=== PATIENT | female | born 1990 | race African-American/Black ===

== ENCOUNTER 2016-12-04 09:25 | Observation (INO) ==
[2016-12-04] MEDS ORDERED: SODIUM CHLORIDE 0.9% 1,000 ML IV STA (09:52)
[2016-12-04 10:03] LABS: Basophils % 0.1 % (0.0-0.8); Eosinophils % 0.3 % (0.00-10.9); Hematocrit 22.2 VOL% (35.7-47.0); Hemoglobin 7.3 GM/DL (12.0-16.0); Immature Granulocytes % 0.6 %; Immature Granulocytes Absolute 0.07 #; Lymphocytes # 1.3 10*3/uL (1.4-4.0); Lymphocytes % 11.7 % (21.3-54.2); Mean Corpuscular HGB Conc 32.9 GM/DL (32-36); Mean Corpuscular Hemoglobin 30 PG (27-34); Mean Corpuscular Volume 90.2 FL (87-102); Mean Platelet Volume 9.9 FL (9.6-12.0); Monocytes # 0.7 10*3/uL (0.11-0.8); Monocytes % 6.4 % (1.7-12.7); Neutrophils % 80.9 % (38.7-73.9); Platelet Count 186 T/CUMM (130-400); Red Blood Count 2.46 MC/CUMM (3.8-5.5); Red Cell Distribution Width 13.8 % (9.3-17.3); White Blood Count 11.1 T/CUMM (4-12)
[2016-12-04] MEDS ORDERED: ONDANSETRON 4 MG/2 ML VIAL IV STA (10:07)
[2016-12-04] MEDS ORDERED: HYDROmorphone 2 MG/1 ML VIAL IV STA (10:07)
[2016-12-04] MEDS ORDERED: ONDANSETRON 4 MG/2 ML VIAL ONE (10:09)
[2016-12-04] MEDS ORDERED: HYDROmorphone 2 MG/1 ML VIAL ONE (10:09)
[2016-12-04 10:12] LABS: INR 1.1; PT Patient Result 11.5 SECS; Partial Thromboplastin Time 29.9 SECS (0-40)
--- NOTE | 2016-12-04 10:15 | Emergency Department Note ---
Pratik Ledezma Hilary, am scribing for, and in the presence of, Elmer Clancy MD 10: 12. Julieth Ledezma James D, MD, personally performed the services described in this documentation, ascribed by Maggie Christie in my presence, and it is both accurate and complete . Arrival - Arrival Chief Complaint: Urogenital - Female Stated Complaint: Urogenital ED Nursing Triage Note: Pt had a D&C performed friday at OSH. Pt has had bleeding and abd pain since. The pain became much worse at 5 am. Mode of Arrival: Stretcher Limitations: No Limitations Source: Patient, RN Notes Reviewed Time Seen by Provider: 12/04/16 09:47 - History of Present Illness HPI Narrative: Pt is a 26 y/o black female brought into the ED via EMS for c/o vaginal bleeding which onset yesterday. Pt had a vaginal delivery 4 days ago [facility] and they performed a D&C to get the rest of the Placenta out. Pt states the pain subsided but then came back yesterday in clots but no pain, and around 0500 this morning the pain so was so severe that she called EMS. Onset (ago): day(s) Allergies/Adverse Reactions: Allergies Allergy/AdvReac Type Severity Reaction Status Date / Time No Known Allergies Allergy Verified 12/04/16 09:31 Home Medications: Home Medications Medication Instructions Recorded Confirmed Type No Known Home Medications [No 12/04/16 12/04/16 History Known Home Medications] Review of System - Review of System 12 point system: reviewed and no additional remarkable complaints except as stated - Review of System Constitutional: Absent: fever Gastrointestinal: Present: abdominal pain Genitourinary female: Present: other (Vaginal bleeding) Medical,Surgical,& Family Hx - Medical History Reproductive: History of: Ectopic - Social History Smoking Status: Never smoker Frequency of Alcohol Use: None Type of Drug Use: None Exam Physical Examination: GENERAL: This is a well-nourished, well-developed female in no apparent distress. VITAL SIGNS: Temperature:98.7 Pulse: 120 Respiratory: 16 Blood Pressure: 119/68 O2Sat: 100 HEENT: Head is normocephalic and atraumatic. Pupils are equally round and reactive to light. Extraocular movement are intact. Oropharynx is benign with moist mucous membranes. NECK: Neck is soft and supple without tenderness. There are no masses. There is no lymphadenopathy. LUNGS: Lungs are clear to auscultation bilaterally. Chest rises symmetrically. There is no chest wall tenderness. CV: Heart is Tachycardic rate and rhythm without murmurs, rubs, or gallops. ABDOMEN: Abdomen is soft, tenderness to palpation above the uterus. There are no abnormal masses palpated. There is no organomegaly. Bowel sounds are present and active. Uterus is 18 weeks in size SKIN: Skin is warm and dry. No rash. EXTREMITIES: Patient has full range of motion without tenderness. There is no pedal edema. NEUROLOGIC: Awake, alert, and oriented x4. Cranial nerves II through XII are grossly intact. There are no motorsensory deficits. PSYCHIATRIC: Normal affect. Normal mood. Vital Signs: Vital Signs Temperature 98.2 F 12/05/16 07:43 Pulse Rate 72 12/05/16 07:43 Respiratory Rate 20 12/05/16 07:43 Blood Pressure 91/63 12/05/16 07:43 O2 Sat by Pulse Oximetry 99 12/05/16 07:43 Course - Consultations Consultation #1: Discussed with Dr. Rubin. Patient will be admitted to his service. Initial orders written for him. He will assume care upon patient's arrival to the ganrer. Results - Labs CBC & BMP: 12/05/16 05:53 Lab Results: I have reviewed the patients labs Labs: Laboratory Tests 12/04/16 09:55 WBC 11.1 RBC 2.46 L Hgb 7.3 L Hct 22.2 L Neut % (Auto) 80.9 H Lymph % (Auto) 11.7 L Neut # (Auto) 9.0 H Lymph # (Auto) 1.3 L Laboratory Tests 12/04/16 09:55 Urine Color Yellow Urine Appearance Slightly hazy Urine Urobilinogen < 2.0 H Disposition Clinical Impression: hemorrhage of vagina Case discussed with: patient Disposition: Still a Patient Condition: Stable
[2016-12-04 10:30] LABS: Apearance,Urine Slightly Hazy (Clear); Bilirubin,Urine Negative (Negative); Blood, Urine Moderate mg/dL (Negative); Glucose,Urine (UA) Negative (Negative); Ketones,Urine 5 mg/dL (Negative); Mucus,Urine Few /LPF (Occasional); Nitrite,Urine Negative (Negative); Protein,Urine Negative; RBC,Urine 1 /HPF (0-4); Squamous Epithelial Cell,Urine Occasional /HPF (0-10); Urine Color Yellow (Yellow); Urine Specific Gravity 1.012 (1.001-1.035); Urine Urobilinogen < 2.0 EU/DL (0.2-1.0); WBC,Urine 1 /HPF (0-6)
[2016-12-04] MEDS ORDERED: OXYTOCIN/LR 20 UNIT/1,000 ML BAG IV ONE (10:36)
[2016-12-04] MEDS ORDERED: OXYTOCIN 10 UNIT/ML VIAL ONE (10:46)
[2016-12-04] MEDS ORDERED: ACETAMINOPHEN 325 MG TABLET PO PRN (11:05)
[2016-12-04] MEDS ORDERED: IBUPROFEN 800 MG TABLET PO PRN (11:05)
[2016-12-04] MEDS ORDERED: ONDANSETRON 4 MG/2 ML VIAL IV PRN (11:05)
[2016-12-04] MEDS ORDERED: SODIUM CHLORIDE 0.9% 250 ML IV PRN (11:05)
[2016-12-04] MEDS ORDERED: BISACODYL 10 MG SUPP RECTAL PRN (11:05)
[2016-12-04] MEDS ORDERED: MEPERIDINE 50 MG/1 ML VIAL IV PRN (11:44)
--- NOTE | 2016-12-04 13:34 | Ultrasound Report ---
US pelvic complete Indication: Vaginal bleeding 4 days . Comparison: None. Technique: Using transabdominal probe, grayscale and color Doppler images of the pelvis were captured and stored. Findings: Uterus measures 13.4 x 7.0 x 6.4 cm. The endometrium is thickened measuring 1.9 cm. Anatomic detail of the endometrial cavity is not well visualized. The right ovary measures 2.5 x 2.5 x 2.3 cm. Cyst within the right ovary measures 1.6 x 2.0 x 1.6 cm. Left ovary measures 2.4 x 1.8 x 1.7 cm. Impression: 1. Thickened endometrium with poorly defined architectural detail could reflect evidence of retained products of conception. To some degree the appearance could represent clot. 12/04/2016 1:30 PM PROCEDURE INTERPRETED AT [facility] DEPARTMENT OF RADIOLOGY Final Report Signed by: Dr. Mamadou Flores
--- NOTE | 2016-12-04 14:25 | History & Physical Report ---
Assessment and Plan (1) demise before 20 weeks with retention of fetus Status: Acute Current Visit: Yes (2) bleeding Problem details: States that she required a blood transfusion during her suction D&C for retained placenta following her mid trimester demise with vaginal delivery Status: Acute Assessment and plan: Responding to Pitocin drip and supportive care, will continue until morning Current Visit: Yes Qualifiers: hemorrhage type: secondary hemorrhage Qualified Code( s): O72.2 - Delayed and secondary hemorrhage (3) Blood loss anemia Problem details: Current ultrasound reveals intrauterine mass which could be either retained products or a clot Status: Acute Assessment and plan: transfusing 2 units packed RBC's Current Visit: Yes History of Present Illness Chief complaint: Patient admitted through the emergency room with heavy vaginal bleeding History of present illness: Ms. Mason is a 26 year old female who under went delivery of an 18 week demise last week, followed by a suction D&C for retained placenta. She was doing well until this morning which time she began having very painful bleeding and cramping and passing large clots. She has been admitted to the hospital with intravenous Pitocin and supportive care and her pain and bleeding has improved considerably. An ultrasound has revealed possible retained products versus a large clot. Home Medications Medication Instructions Recorded Confirmed Type No Known Home Medications [No 12/04/16 12/04/16 History Known Home Medications] Allergies Allergy/AdvReac Type Severity Reaction Status Date / Time No Known Allergies Allergy Verified 12/04/16 09:31 - Constitutional Constitutional: Present: weakness - EENT Eyes: Present: as per HPI Ears: Present: as per HPI Nose, mouth and throat: Present: as per HPI - Cardiovascular Cardiovascular: Present: lightheadedness. Absent: diaphoresis, edema - Respiratory Respiratory: Absent: cough, dyspnea on exertion, wheezing - Gastrointestinal Gastrointestinal: Absent: abdominal pain, nausea, vomiting - Genitourinary Genitourinary: Present: as per HPI, abnormal vaginal bleeding. Absent: urinary frequency, urinary hesitancy - Musculoskeletal Musculoskeletal: Present: as per HPI - Neurological Neurological: Present: as per HPI - Psychiatric Psychiatric: Present: as per HPI - Hematologic/Lymphatic Hematologic/Lymphatic: Present: as per HPI. Absent: easy bleeding, easy bruising Medical,Surgical,& Family Hx - Medical History Hematology: History of: Anemia Reproductive: History of: Ectopic , Complication (18 week demise 1 week ago, history of 2 previous deliveries) - Surgical History Neurologic Surgeries: Patient denies: Neurologic Surgery Abdominal Surgeries: Patient denies: Abdominal Surgery Reproductive Surgeries: Surgical HX of;: Section (2011, 2014), Dilation and Curettage (11/30/16) Patient denies;: Genitourinary Surgery - Family History Family History: Reports;: Family Diabetes (grandmother), Family Hypertension ( grandmother) - Social History Smoking Status: Never smoker Frequency of Alcohol Use: None Type of Drug Use: None Exam - Constitutional Vitals: Period Temp Pulse Resp BP Sys/Holder Pulse Ox Last 24 Hr 97.1 F-98.0 F 77-97 16-20 93-111/51-71 98-100 General appearance: no acute distress - Head Head exam: Present: normal inspection - Eye Eye exam: Present: EOMI Pupils: Present: MADDIE. Absent: dilated, unequal - ENT ENT exam: Present: normal exam - Neck Neck exam: Present: normal inspection - Respiratory Respiratory exam: Present: clear to auscultation bilaterally. Absent: accessory muscle use - Cardiovascular Cardiovascular exam: Present: regular rate and rhythm. Absent: bradycardia, irregular rhythm - GI/Abdominal GI/Abdominal exam: Present: normal bowel sounds, mass (Uterus palpable in the suprapubic region, nontender appears to be tonic), other (Bleeding has decreased markedly and is wearing a perineal pad now with old watery blood). Absent: guarding - Extremities Exam Extremities exam: Present: normal inspection - Back Exam Back exam: Present: normal inspection - Neurological Exam Neurological exam: Present: alert, oriented X3 - Psychiatric Psychiatric exam: Present: normal affect, normal mood - Skin Skin exam: Present: normal color, warm, dry Results - Labs CBC & BMP: 12/04/16 09:55
[2016-12-04] MEDS ORDERED: OXYTOCIN/LR 20 UNIT/1,000 ML BAG IV SCH (18:00)
[2016-12-04] MEDS: DOCUSATE SODIUM 100 MG CAPSULE PO SCH (20:23)
[2016-12-04] MEDS: MAGNESIUM HYDROXIDE SUSP 30 ML UDCUP PO PRN (20:23)
[2016-12-04 20:41] LABS: Hemoglobin 8.6 GM/DL (12.0-16.0)
[2016-12-05 06:07] LABS: Basophils % 0.4 % (0.0-0.8); Eosinophils # 0.1 10*3/uL (0.0-0.87); Eosinophils % 1.5 % (0.00-10.9); Hematocrit 24.5 VOL% (35.7-47.0); Hemoglobin 8.2 GM/DL (12.0-16.0); Immature Granulocytes % 0.8 %; Immature Granulocytes Absolute 0.06 #; Lymphocytes # 1.6 10*3/uL (1.4-4.0); Lymphocytes % 22.6 % (21.3-54.2); Mean Corpuscular HGB Conc 33.5 GM/DL (32-36); Mean Corpuscular Hemoglobin 30 PG (27-34); Mean Corpuscular Volume 88.4 FL (87-102); Mean Platelet Volume 10.1 FL (9.6-12.0); Monocytes # 0.4 10*3/uL (0.11-0.8); Monocytes % 6.1 % (1.7-12.7); Neutrophils # 4.9 10*3/uL (1.4-7.4); Neutrophils % 68.6 % (38.7-73.9); Platelet Count 181 T/CUMM (130-400); Red Blood Count 2.77 MC/CUMM (3.8-5.5); White Blood Count 7.2 T/CUMM (4-12)
[2016-12-05 07:46] VITALS: BP 91/63
[2016-12-05] MEDS: DOCUSATE SODIUM 100 MG CAPSULE PO SCH (08:10)
[2016-12-05] MEDS: MAGNESIUM HYDROXIDE SUSP 30 ML UDCUP PO PRN (08:11)
[2016-12-05] MEDS ORDERED: FERROUS SULFATE 325 MG TABLET PO SCH (09:00)
--- NOTE | 2016-12-05 11:02 | Discharge Summary ---
Hospital Course - Hospital Course Hospital Course: This patient was admitted following an episode of bright red bleeding following a midtrimester miscarriage followed by a D&C at another hospital. The bleeding decreased considerably with bedrest. Ultrasound revealed either retained placental products or clot. She was rather anemic but was tolerating it fairly well other than some hypertensive episodes with ambulation. She received 2 units of packed red blood cells and was feeling much better today. Hemoglobin is up to 8.4. Bleeding is almost ceased since passing a large clot last night. She is feeling much better today and is ready to be discharged. She is to be following up with her providers in [place]. Diagnosis - Discharge Diagnosis (1) demise before 20 weeks with retention of fetus Status: Acute (2) bleeding Status: Acute (3) Blood loss anemia Status: Acute Discharge Plan - Discharge Data Disposition: Disch To Home/Self Care Condition at Discharge: Stable Discharge Diet: advance to your usual diet Activity: resume usual activities as tolerated Hygiene: may shower Weight Bearing at Discharge: full weight bearing Driving: not until seen by doctor Contact your physician if you experience:: fever over 101, Difficulty voiding, Redness or swelling, Nausea/Vomiting, Shortness of breath, Bleeding, pain uncontrolled by pain medications - Discharge Medications No Action No Known Home Medications [No Known Home Medications] - Follow Up or Referral - Forms/Instructions Exam - Constitutional Vitals: Period Temp Pulse Resp BP Sys/Holder Pulse Ox Last 24 Hr 97.1 F-99.1 F 72-97 16-20 91-111/51-74 97-100 General appearance: no acute distress - Head Head exam: Present: normal inspection - Respiratory Respiratory exam: Present: clear to auscultation bilaterally - Cardiovascular Cardiovascular exam: Present: regular rate and rhythm - GI/Abdominal GI/Abdominal exam: Absent: guarding, tenderness - Extremities Exam Extremities exam: Present: normal inspection - Back Exam Back exam: Present: normal inspection - Neurological Exam Neurological exam: Present: alert, oriented X3 - Psychiatric Psychiatric exam: Present: normal affect, normal mood - Skin Skin exam: Present: normal color, warm, dry Discharge Results Labs on day of discharge: Labs from last 24 hours 12/05/16 12/04/16 12/04/16 05:53 Unknown 20:35 WBC 7.2 D RBC 2.77 L Hgb 8.2 L 8.6 L Hct 24.5 L 25.0 L MCV 88.4 MCH 30 MCHC 33.5 RDW 14.0 Plt Count 181 MPV 10.1 Neut % (Auto) 68.6 Lymph % (Auto) 22.6 F[place]ardo % (Auto) 6.1 Eos % (Auto) 1.5 Baso % (Auto) 0.4 Neut # (Auto) 4.9 Lymph # (Auto) 1.6 F[place]ardo # (Auto) 0.4 Eos # (Auto) 0.1 Baso # (Auto) 0.0 Immature Gran % 0.8 Nucleated RBC % 0.0 Immature Gran # 0.06 Nucleated RBCs # 0.00 Blood Type O POSITIVE Antibody Screen Crossmatch Blood Bank Comment 12/04/16 11:05 WBC RBC Hgb Hct MCV MCH MCHC RDW Plt Count MPV Neut % (Auto) Lymph % (Auto) [place]ardo % (Auto) Eos % (Auto) Baso % (Auto) Neut # (Auto) Lymph # (Auto) [place]ardo # (Auto) Eos # (Auto) Baso # (Auto) Immature Gran % Nucleated RBC % Immature Gran # Nucleated RBCs # Blood Type Cancelled Antibody Screen Cancelled Crossmatch See Detail Blood Bank Comment Cancelled DS: Provider Date of admission: 12/04/16 10:37 Primary care physician: . No PCP Attending physician on admission: Reggie Rubin DO Discharging clinician: Reggie Rubin DO Expected date of discharge: 12/05/16
--- NOTE | 2016-12-06 10:48 | Pathology Report from [facility] ---
ACCESSION # : [id number] PATIENT NAME : Evita Freeman ORDERING DR : GURINDER OLGUIN DO CLINICAL HX: Abd pain w/increased bleeding vaginally 4 days after demise & suction D & C POST-OP DX: Same SPECIMEN INFO: Possible placenta fragments GROSS DESCRIPTION: Received fresh labeled "EVITA FREEMAN" are placenta fragments and clotted blood weighing 87 gms and measuring 10.0 x 4.0 x 2.5 cm in aggregate. A short segment of umbilical cord is seen measuring 2.5 cm. The number of vessels is difficult to be determine. Director Decision Support sections of tissue are submitted in cassette A & B. DIAGNOSIS FOR EVITA FREEMAN: POSSIBLE PLACENTAL FRAGMENTS: Placental fragments with focal infarction and clotted blood; acute and chronic inflammation; umbilical cord tissue with marked acute inflammation. SERVICE DATE: 12/05/2016 REPORT DATE: 12/06/2016 PATHOLOGIST: Oscar Valenzuela [facility].D[facility]
== END 2016-12-05 11:35 | disposition home or self-care (01) ==
LOC: EDBD → EDUNIT# → N.ED 09:25 → N.EDINP 09:25 → N.OB 11:04
PROVIDERS: ADMIT Obstetrics & Gynecology; ATTEND Obstetrics & Gynecology